=== PATIENT | male | born 1980 | race African-American/Black ===

== ENCOUNTER 2019-04-09 07:56 | Emergency (ER) | payer SELFPAY ==
[~2019-04-09] VITALS: Ht 172.7 cm; Wt 90.0 kg
[2019-04-09 08:37] LABS: IMMATURE GRANULOCYTES 0.5 % (0.0-5.0); MEAN CELL VOLUME 76.4 fL CALC (80.0-100.0); MEAN CORPUSCULAR HGB 27.4 pG CALC (26.0-32.0); MEAN CORPUSCULAR HGB CONC 35.9 g/L CALC (32.0-36.0); NEUT# 14.63 thou/uL (1.82-7.42); RED BLOOD COUNT 5.18 mill/uL (4.70-6.10); RED CELL DISTRI WIDTH 13.1 % (11.5-15.5)
[2019-04-09 08:38] LABS: HEMATOCRIT 39.6 % (39.0-50.0); HEMOGLOBIN 14.2 g/dl (14.0-18.0)
[2019-04-09 08:51] LABS: BILIRUBIN, TOTAL 0.9 mg/dL (0.0-1.4); MAGNESIUM 1.8 mg/dL (1.6-2.3); TOTAL PROTEIN 8.4 g/dL (6.3-8.2)
[2019-04-09 08:55] LABS: CREATININE 2.9 mg/dL (0.7-1.3)
[2019-04-09 09:03] LABS: ACT PARTIAL THROMBO TIME 26.7 SECONDS (20.0-32.5); PROTHROMBIN TIME 10.9 SECONDS (9.0-12.5)
[2019-04-09 09:54] VITALS: BP 181/104
== END 2019-04-09 10:10 | disposition short-term general hospital (02) | DRG 281 ==
LOC: ED 07:56
DX: I21.4 Non-ST elevation (NSTEMI) myocardial infarction (principal); I16.1 Hypertensive emergency; I10 Essential (primary) hypertension; T46.5X6A Underdosing of other antihypertensive drugs, initial encounter; Z91.128 Patient's intentional underdosing of medication regimen for other reason
CPT/HCPCS: J1644

== ENCOUNTER 2019-12-27 07:50 | Emergency (ER) | payer MEDICAID ==
[2019-12-27 08:26] LABS: HEMATOCRIT 31.7 % (39.0-50.0); HEMOGLOBIN 10.9 g/dl (14.0-18.0); IMMATURE GRANULOCYTES 0.5 % (0.0-5.0); MEAN CELL VOLUME 80.9 fL CALC (80.0-100.0); MEAN CORPUSCULAR HGB 27.8 pG CALC (26.0-32.0); MEAN CORPUSCULAR HGB CONC 34.4 g/dL CAL (32.0-36.0); NEUT# 7.75 thou/uL (1.82-7.42); RED BLOOD COUNT 3.92 mill/uL (4.70-6.10); RED CELL DISTRI WIDTH 16.6 % (11.5-15.5)
[2019-12-27 08:47] LABS: TOTAL PROTEIN 6.9 g/dL (6.3-8.2)
[2019-12-27 08:53] LABS: BILIRUBIN, TOTAL 0.4 mg/dL (0.0-1.4); CREATININE 8.9 mg/dL (0.7-1.3)
[2019-12-27 11:13] VITALS: BP 90/50
== END 2019-12-27 11:14 | disposition left against medical advice (07) ==
LOC: ED 07:50
PROVIDERS: Family Medicine
DX: I21.4 Non-ST elevation (NSTEMI) myocardial infarction (principal); R55 Syncope and collapse; I95.9 Hypotension, unspecified; I12.0 Hypertensive chronic kidney disease with stage 5 chronic kidney disease or end stage renal disease; N18.6 End stage renal disease; Z99.2 Dependence on renal dialysis; Z91.19 Patient's noncompliance with other medical treatment and regimen

== ENCOUNTER 2020-09-09 14:40 | Emergency (ER) | payer MEDICARE, MEDICAID ==
[~2020-09-09] VITALS: Ht 172.7 cm; Wt 93.2 kg
[2020-09-09 15:42] LABS: HEMOGLOBIN 9.9 g/dl (14.0-18.0); IMMATURE GRANULOCYTES 0.4 % (0.0-5.0); MEAN CELL VOLUME 81.6 fL CALC (80.0-100.0); MEAN CORPUSCULAR HGB 28.9 pG CALC (26.0-32.0); MEAN CORPUSCULAR HGB CONC 35.4 g/dL CAL (32.0-36.0); NEUT# 4.36 thou/uL (1.82-7.42); RED BLOOD COUNT 3.43 mill/uL (4.70-6.10); RED CELL DISTRI WIDTH 13.3 % (11.5-15.5)
[2020-09-09 15:54] LABS: ALBUMIN 4.4 g/dL (3.2-5.0); BILIRUBIN, TOTAL 0.4 mg/dL (0.0-1.4); POTASSIUM 3.5 mmol/l (3.5-5.1); TOTAL PROTEIN 7.2 g/dL (6.3-8.2)
[2020-09-09 15:59] LABS: CREATININE 4.5 mg/dL (0.7-1.3)
[2020-09-09 16:22] VITALS: BP 160/95
== END 2020-09-09 16:26 | disposition short-term general hospital (02) ==
LOC: ED 14:40
DX: I16.0 Hypertensive urgency (principal); I12.0 Hypertensive chronic kidney disease with stage 5 chronic kidney disease or end stage renal disease; N18.6 End stage renal disease; Z99.2 Dependence on renal dialysis; T82.848A Pain due to vascular prosthetic devices, implants and grafts, initial encounter; T82.838A Hemorrhage due to vascular prosthetic devices, implants and grafts, initial encounter; Y83.2 Surgical operation with anastomosis, bypass or graft as the cause of abnormal reaction of the patient, or of later complication, without mention of misadventure at the time of the procedure